=== PATIENT | male | born 2000 | race Caucasian/White ===

== ENCOUNTER → 2019-04-10 | Outpatient (CLI) | payer OTHER | LOC: M.RAD 13:08 | DX: R05 Cough (principal); R06.2 Wheezing; R06.02 Shortness of breath ==

== ENCOUNTER 2019-12-16 00:03 | Emergency (ER) | payer OTHER ==
[~2019-12-16] VITALS: Ht 185.4 cm; Wt 104.3 kg
[2019-12-16 00:31] LABS: AMP/METHAMP Negative (Negative); BARBITURATES Negative (Negative); BENZODIAZEPINES Negative (Negative); COCAINE Negative (Negative); METHADONE Negative (Negative); OPIATES Negative (Negative); PCP Negative (Negative); THC Negative (Negative)
[2019-12-16] MEDS ORDERED: VYVANSE40 MG PO (00:37)
[2019-12-16] MEDS ORDERED: SERTRALINE HCL100 MG PO (00:38)
[2019-12-16 00:44] LABS: URINE BILIRUBIN NEGATIVE (Negative); URINE BLOOD NEGATIVE (Negative); URINE CLARITY CLEAR; URINE COLOR YELLOW; URINE GLUCOSE-RANDOM NEGATIVE (Negative); URINE KETONES NEGATIVE (Negative); URINE LEUKOCYTES NEGATIVE (Negative); URINE NITRITE NEGATIVE (Negative); URINE PROTEIN NEGATIVE (Negative); URINE SPECIFIC GRAVITY <= 1.005 (1.005-1.030); URINE UROBILINOGEN 0.2 E.U./dl (0.2-1.0)
[2019-12-16 00:48] LABS: CALCIUM 8.6 mg/dL (8.5-10.1); CREATININE 1.2 mg/dL (0.6-1.3); POTASSIUM 3.5 mmol/L (3.5-5.1)
[2019-12-16 00:52] LABS: ALBUMIN 4.3 g/dL (3.4-5.0); TOTAL BILIRUBIN 0.4 mg/dL (<0.1-1.0); TOTAL PROTEIN 7.5 g/dL (6.4-8.2)
[2019-12-16 01:04] LABS: ACETAMINOPHEN < 2 ug/mL (10-30); ALCOHOL < 10 mg/dL (<10); SALICYLATE < 2.8 mg/dL (2.8-20.0)
[2019-12-16 01:05] LABS: HEMATOCRIT 43.1 % (42.0-52.0); HEMOGLOBIN 15.7 gm/dL (14.0-18.0); MCH 30.7 pg (26.0-34.0); MCHC 36.4 g/dL (28.0-37.0); MCV 84.5 fL (80.0-100.0); MPV 8.4 fl. (7.2-11.1); RBC 5.1 mil/uL (4.50-6.00); RDW-CV 12.8 % (10.5-14.5); WBC 8.6 thou/uL (4.0-11.0)
[2019-12-16] MEDS ORDERED: [UNRECOGNIZED DRUG - REMARK] (01:26)
[2019-12-16 05:03] VITALS: BP 113/50
== END 2019-12-16 05:03 | disposition home or self-care (01) ==
LOC: M.ERS 00:03
PROVIDERS: Personal Emergency Response Attendant
DX: F41.9 Anxiety disorder, unspecified (principal); R45.851 Suicidal ideations; F32.9 Major depressive disorder, single episode, unspecified